=== PATIENT | female | born 1950 | race Caucasian/White ===

== ENCOUNTER 2024-01-02 21:33 | Emergency (ER) | payer OTHER ==
--- NOTE | 2024-01-02 22:36 | ER ---
Nurse's Notes [facility] Name: Michelle Trujillo Age: 73 yrs Sex: Female : 1950 Arrival Date: 01/02/2024 Time: 21:33 Bed 11 Private MD: Diagnosis: Encounter for removal of sutures;Nasal bridge laceration, encounter for suture removal Presentation: 01/01 21:47 Chief complaint: Patient states: Here to have sutures removed from nose placed on 12/26. cm10 Coronavirus screen: Client denies travel out of the [place] in the last 14 days. Ebola Screen: Patient denies travel to an Ebola-affected area in the 21 days before illness onset. No symptoms or risks identified at this time. Initial Sepsis Screen: Does the patient meet any 2 criteria? No. Patient's initial sepsis screen is negative. Does the patient have a suspected source of infection? No. Patient's initial sepsis screen is negative. Risk Assessment: Do you want to hurt yourself or someone else? Patient reports no desire to harm self or others. Onset of symptoms was January 02, 2024. 21:47 Method Of Arrival: Ambulatory cm10 21:47 Acuity: GIOVANNY 5 cm10 Triage Assessment: 21:48 General: Appears in no apparent distress. comfortable, Behavior is calm, cooperative. cm10 Pain: Complains of pain in Right elbow. Neuro: No deficits noted. Level of Consciousness is awake, alert, obeys commands, Oriented to person, place, time, situation, Appropriate for age. Respiratory: No deficits noted. Airway is patent Respiratory effort is even, unlabored, Respiratory pattern is regular, symmetrical. Derm: Sutures to nose. Historical: - Allergies: 21:47 EGG/POULTRY; cm10 21:47 Iodine; cm10 21:47 Morphine; cm10 - PMHx: 21:47 Hyperlipidemia; Hypothyroidism; cm10 - Immunization history:: Adult Immunizations up to date. - Infectious Disease History:: Denies. - Social history:: Smoking status: Patient denies any tobacco usage or history of. - Family history:: not pertinent. Screenin:49 [facility] ED Fall Risk Assessment (Adult) History of falling in the last 3 months, cm10 including since admission Yes- single mechanical fall (1 pt) Confusion or Disorientation No (0 pts) Intoxicated or Sedated No (0 pts) Impaired Gait No (0 pts) Mobility Assist Device Used No (0 pt) Altered Elimination No (0 pt) Score/Fall Risk Level 0 - 2 = Low Risk Oriented to surroundings, Maintained a safe environment, Hourly rounding (assess needs \T\ fall precautionary measures) done. Abuse screen: Denies threats or abuse. Denies injuries from another. Nutritional screening: No deficits noted. Tuberculosis screening: No symptoms or risk factors identified. Assessment: 22:48 Reassessment: Patient appears in no apparent distress at this time. No changes from vc1 previously documented assessment. Patient and/or family updated on plan of care and expected duration. Pain level reassessed. Patient is alert, oriented x 3, equal unlabored respirations, skin warm/dry/pink. Vital Signs: 21:47 BP 150 / 86; Pulse 70; Resp 16; Temp 97.6; Pulse Ox 96% on R/A; Weight 69.85 kg; Height cm10 5 ft. 6 in. ; Pain 6/10; 22:48 BP 148 / 84; Pulse 72; Resp 16; Pulse Ox 97% ; vc1 21:47 Body Mass Index 24.86 (69.85 kg, 167.64 cm) cm10 21:47 Pain Scale: Adult cm10 Mikayla Coma Score: 01/02 20:55 Eye Response: spontaneous(4). Motor Response: obeys commands(6). Verbal Response: sp4 oriented(5). Total: 15. ED Course: 01/01 21:35 Patient arrived in ED. im 21:35 Edgardo Sandhu MD is Attending Physician. sp4 21:48 Triage completed. cm10 21:49 Arm band placed on left wrist. Patient placed in an exam room, on a stretcher. cm10 21:49 Patient has correct armband on for positive identification. Bed in low position. Call cm10 light in reach. Provided Education on: ER process and procedures.. 21:49 No provider procedures requiring assistance completed. Removal of Removed sutures from cm10 nose Suture site is well healed Patient tolerated well. 22:48 Patient did not have IV access during this emergency room visit. vc1 Administered Medications: No medications were administered Medication: 21:49 VIS not applicable for this client. cm10 Outcome: 22:35 Discharge ordered by . sp4 22:48 Discharged to home ambulatory, vc1 22:48 Condition: good 22:48 Discharge instructions given to patient, Instructed on discharge instructions, the need for admit, Demonstrated understanding of instructions, follow-up care, 22:49 Patient left the ED. vc1 Signatures: Letty Atkinson RN RN vc1 Edgardo Sandhu MD MD sp4 Radha Kauffman Clarissa, RN RN cm10
--- NOTE | 2024-01-02 22:36 | EDPHYS ---
Physician Documentation [facility] Name: Michelle Trujillo Age: 73 yrs Sex: Female : 1950 Arrival Date: 01/02/2024 Time: 21:33 Bed 11 Private MD: ED Physician Edgardo Sandhu HPI: 01/01 21:35 This 73 yrs old Female presents to ER via Unassigned with complaints of sp4 Suture Removal. 01/02 20:54 73 -year-old female presents for suture removal. Patient was here 12/26/2023 for fall sp4 associated injury with fracture of the head of the right radius and also laceration to the bridge of her nose. Patient then had sutures applied to the bridge of the nose. Total of 5 sutures. Patient is here for suture removal.. Historical: - Allergies: 01/01 21:47 EGG/POULTRY; cm10 21:47 Iodine; cm10 21:47 Morphine; cm10 - PMHx: 21:47 Hyperlipidemia; Hypothyroidism; cm10 - Immunization history:: Adult Immunizations up to date. - Infectious Disease History:: Denies. - Social history:: Smoking status: Patient denies any tobacco usage or history of. - Family history:: not pertinent. ROS: 01/02 20:55 Constitutional: Negative for fever, chills, and weight loss, positive for sutured sp4 bridge of the nose laceration All other systems are negative, Exam: 20:55 Constitutional: This is a well developed, well nourished patient who is awake, alert, sp4 and in no acute distress. Head/Face: Normocephalic, multiple facial abrasions and healing stages. Bridge of the nose laceration with sutures present. Eyes: Pupils equal round and reactive to light, extra-ocular motions intact. Lids and lashes normal. Conjunctiva and sclera are not injected. Cornea within normal limits. Periorbital areas with no swelling, redness, or edema. ENT: Nares patent. No nasal discharge, no septal abnormalities noted. Tympanic membranes are normal and external auditory canals are clear. Oropharynx with no redness, swelling, or masses, exudates, or evidence of obstruction, uvula midline. Mucous membranes moist. Neck: Trachea midline, no thyromegaly or masses palpated, and no cervical lymphadenopathy. Supple, full range of motion without nuchal rigidity, or vertebral point tenderness. Chest/axilla: Normal chest wall appearance and motion. Nontender with no deformity. No lesions are appreciated. Cardiovascular: Regular rate and rhythm with a normal S1 and S2. No gallops, murmurs, or rubs. Normal PMI, no JVD. No pulse deficits. Respiratory: Lungs have equal breath sounds bilaterally, clear to auscultation and percussion. No rales, rhonchi or wheezes noted. No increased work of breathing, no retractions or nasal flaring. Abdomen/GI: Soft, with normal bowel sounds. No distension or tympany. No guarding or rebound. No evidence of tenderness throughout. Back: No spinal tenderness. No costovertebral tenderness. Skin: Warm, dry with normal turgor. Normal color with no rashes, no lesions, and no evidence of cellulitis. MS/ Extremity: Pulses equal, no cyanosis. Neurovascular intact. Full, normal range of motion. Neuro: Awake and alert, GCS 15, oriented to person, place, time, and situation. Cranial nerves II-XII grossly intact. Motor strength 5/5 in all extremities. Sensory grossly intact. Psych: Awake, alert, with orientation to person, place and time. Behavior, mood, and affect are within normal limits Vital Signs: 01/01 21:47 BP 150 / 86; Pulse 70; Resp 16; Temp 97.6; Pulse Ox 96% on R/A; Weight 69.85 kg; Height cm10 5 ft. 6 in. ; Pain 6/10; 22:48 BP 148 / 84; Pulse 72; Resp 16; Pulse Ox 97% ; vc1 21:47 Body Mass Index 24.86 (69.85 kg, 167.64 cm) cm10 21:47 Pain Scale: Adult cm10 [place] Coma Score: 01/02 20:55 Eye Response: spontaneous(4). Motor Response: obeys commands(6). Verbal Response: sp4 oriented(5). Total: 15. Procedures: 20:55 Suture/Staple removal: Removed 5 sutures, from bridge of nose, site appears In healing sp4 stages, dressed with Neosporin, Patient tolerated well, Sutures removed without a problem . MDM: 01/01 21:40 Patient medically screened. sp4 10/04 20:55 Data reviewed: vital signs, nurses notes, old medical records. ED course: Stable for sp4 discharge home after suture removal . Administered Medications: No medications were administered Disposition Summary: 01/02/24 22:35 Discharge Ordered Notes: Location: Home sp4 Problem: new sp4 Symptoms: have improved sp4 Condition: Stable sp4 Diagnosis - Encounter for removal of sutures sp4 - Nasal bridge laceration, encounter for suture removal sp4 Followup: sp4 - With: Private Physician - When: 7 - 10 days - Reason: Recheck today's complaints Discharge Instructions: - Discharge Summary Sheet sp4 - Laceration Care, Adult sp4 Forms: - Patient Portal Instructions sp4 Signatures: Edgardo Sandhu MD MD sp4 Elisa Coleman RN RN cm10
[2024-01-03 10:12] VITALS: TEMP 97.6
[2024-01-03 10:13] VITALS: BP 148/84; O2SAT 97
== END 2024-01-02 22:49 | disposition home or self-care (01) ==
LOC: ER 21:33
DX: Z48.02 Encounter for removal of sutures (principal)
CPT/HCPCS: 99281; 99283

== ENCOUNTER 2024-12-28 07:26 | Emergency (ER) | payer OTHER ==
[2024-12-28] MEDS ORDERED: ACETAMINOPHEN 500 MG TAB ONE (07:36)
[2024-12-28] MEDS ORDERED: ONDANSETRON 4 MG (ODT) TAB ONE (07:36)
[2024-12-28] MEDS ORDERED: HYDROCODONE/APAP 5/325 MG TAB ONE (07:38)
--- NOTE | 2024-12-28 08:08 | RAD REPORT ---
EXAM: Knee Left 2 View INDICATION: trauma COMPARISON: 12/26/2023 FINDINGS: No acute fracture. No significant knee effusion. Mild medial and lateral compartment narrowing. Patellar enthesophytes. Other: N/A IMPRESSION: No acute osseous abnormality involving the imaged knee.
--- NOTE | 2024-12-28 08:22 | RAD REPORT ---
EXAMINATION: Head Brain Wo Cont CLINICAL INDICATION: Female, 74 years old.TRAUMA TECHNIQUE: Axial CT images from the skull base to the vertex without intravenous contrast. Coronal an d sagittal reformatted images were created from the data set. One or more of the following dose reduction techniques were used: Automated exposure control, adjustment of the mA and/or kV according to patient size, and/or iterative reconstruction. Unless otherwise specified, incidental findings do not require dedicated imaging follow-up. [id number]. COMPARISON: No prior exams FINDINGS: INTRACRANIAL: No acute intracranial hemorrhage. No acute large vascular territory infarct. No hydroce phalus. No mass effect or midline shift. 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 VASCULATURE: No visualized abnormalities in the arteries or dural venous sinuses. SCALP/SKULL: No calvarial fracture identified. No acute soft tissue abnormality. SINUSES: The visualized paranasal sinuses are mostly clear. No significant mastoid fluid. IMPRESSION: No acute intracranial abnormality.
--- NOTE | 2024-12-28 08:26 | RAD REPORT ---
EXAMINATION: Facial Bones W/ Mpr CLINICAL INDICATION: Female, 74 years old. TRAUMA TECHNIQUE: Axial images were obtained through the facial bones and orbits without intravenous contras t. Sagittal and coronal reconstructions were created from the data. One or more of the following dose reduction techniques were used: Automated exposure control, adjustment of the mA and/or kV accor ding to patient size, and/or iterative reconstruction. Unless otherwise specified, incidental findings do not require dedicated imaging follow-up. [id number]. COMPARISON: No prior exams FINDINGS: SOFT TISSUE: Left forehead hematoma. Probable laceration. Tiny radiopaque densities within the skin BONES: Remote nondisplaced bilateral nasal bone fractures. No acute fracture identified. ORBITS: The globes are intact. No intraorbital hemorrhage or mass. SINUSES: Trace left maxillary sinus thickening. BRAIN: No acute abnormalities in the visualized intracranial structures. IMPRESSION: No acute facial fracture.. Left forehead hematoma and laceration with some radiopaque debris.
--- NOTE | 2024-12-28 08:46 | EDPHYS ---
Physician Documentation [facility] Name: Mcihelle Trujillo Age: 74 yrs Sex: Female : 1950 Arrival Date: 12/28/2024 Time: 07:26 Bed 13 Private MD: ED Physician Martir Green HPI: 12/28 07:46 This 74 yrs old Female presents to ER via Ambulatory with complaints of Fall Injury, sp3 Face Injury- EYEBROW CHEEK. 07:46 74-year-old female with history of hypothyroidism, hyperlipidemia presents to the ED sp3 with a mechanical fall while walking her dog after she stepped in a hole falling on the left side of her face, left wrist and left knee. She denies loss of consciousness. She states she currently has a headache and facial pain and left knee pain. Left wrist is not painful. She denies significant blood loss, malocclusion, or any other review of systems at this time. Remainder of ROS is negative.. Historical: - Allergies: 07:37 EGG/POULTRY; ss 07:37 Iodine; ss 07:37 Morphine; ss - PMHx: 07:37 Hyperlipidemia; Hypothyroidism; ss - Immunization history:: Last tetanus immunization: up to date. - Infectious Disease History:: Denies. - Social history:: Smoking status: Patient denies any tobacco usage or history of. ROS: 07:47 Constitutional: Negative for fever, chills, and weight loss, Eyes: Negative for injury, sp3 pain, redness, and discharge, Neck: Negative for injury, pain, and swelling, Cardiovascular: Negative for chest pain, palpitations, and edema, Respiratory: Negative for shortness of breath, cough, wheezing, and pleuritic chest pain, Abdomen/GI: Negative for abdominal pain, nausea, vomiting, diarrhea, and constipation, Back: Negative for injury and pain, Skin: Negative for injury, rash, and discoloration, Psych: Negative for depression, anxiety, suicide ideation, homicidal ideation, and hallucinations, Allergy/Immunology: Negative for hives, rash, and allergies, Endocrine: Negative for neck swelling, polydipsia, polyuria, polyphagia, and marked weight changes, Hematologic/Lymphatic: Negative for swollen nodes, abnormal bleeding, and unusual bruising, 07:47 All other systems are negative, Exam: 07:48 Constitutional: This is a well developed, well nourished patient who is awake, alert, sp3 and in no acute distress. Eyes: Pupils equal round and reactive to light, extra-ocular motions intact. Lids and lashes normal. Conjunctiva and sclera are non-icteric and not injected. Cornea within normal limits. Periorbital areas with no swelling, redness, or edema. ENT: Nares patent. No nasal discharge, no septal abnormalities noted. External auditory canals are clear. Oropharynx with no redness, swelling, or masses, exudates, or evidence of obstruction, uvula midline. Mucous membranes moist. Neck: Trachea midline, no thyromegaly or masses palpated, and no cervical lymphadenopathy. Supple, full range of motion without nuchal rigidity, or vertebral point tenderness. No Meningismus. Chest/axilla: Normal chest wall appearance and motion. Nontender with no deformity. No lesions are appreciated. Cardiovascular: Regular rate and rhythm with a normal S1 and S2. No gallops, murmurs, or rubs. Normal PMI, no JVD. No pulse deficits. Respiratory: Lungs have equal breath sounds bilaterally, clear to auscultation and percussion. No rales, rhonchi or wheezes noted. No increased work of breathing, no retractions or nasal flaring. Abdomen/GI: Soft, non-tender, with normal bowel sounds. No distension or tympany. No guarding or rebound. No evidence of tenderness throughout. Back: No spinal tenderness. No costovertebral tenderness. Full range of motion. Skin: Warm, dry with normal turgor. Normal color with no rashes, no lesions, and no evidence of cellulitis. Neuro: Awake and alert, GCS 15, oriented to person, place, time, and situation. Cranial nerves II-XII grossly intact. Motor strength 5/5 in all extremities. Sensory grossly intact. Cerebellar exam normal. Normal gait. Psych: Awake, alert, with orientation to person, place and time. Behavior, mood, and affect are within normal limits. 07:48 Musculoskeletal/extremity: Left knee abrasion over the patella noted. Normal knee exam and distal neurovascular exam is normal. Left wrist painful on motion however no crepitus swelling or any other concerning findings.. Vital Signs: 07:35 BP 175 / 92; Pulse 70; Resp 16; Temp 97.8(O); Pulse Ox 98% on R/A; Weight 82.55 kg; ss Height 5 ft. 6 in. ; Pain 7/10; 08:50 Pain 3/10; ar8 09:33 BP 156 / 92; Pulse 62; Resp 17; Pulse Ox 98% on R/A; Pain 3/10; ar8 07:35 Body Mass Index 29.38 (82.55 kg, 167.64 cm) ss 07:35 Pain Scale: Adult ss 08:50 Pain Scale: Adult ar8 09:33 Pain Scale: Adult ar8 MDM: 07:37 Medical Screening Exam initiated sp3 07:48 Data reviewed: vital signs, nurses notes, radiologic studies. ED course: 74-year-old sp3 female with mechanical fall with injuries to the face, head and extremities. Differential diagnosis includes concussion versus intracranial hemorrhage versus closed head injury versus superficial abrasions and contusions to the face. Left knee abrasion also noted. Eye exam is normal and I am not suspicious of any eye injury including the anterior chamber. No hyphema is present. Patient's neuroexam is normal and she is talking in full sentences in no acute distress. [place] for pain control and ondansetron ODT for nausea control. If scans are negative and wounds require no repair after extensive cleaning, we will safely discharge patient home. Patient's tetanus is up-to-date.. 08:43 ED course: All scans negative. We will again clean wound thoroughly, bandage and sp3 discharge patient home.. 12/28 07:39 Order name: CT Head Brain wo Cont; Complete Time: 08:27 sp3 12/28 07:39 Order name: CT Facial Bones W/O Con; Complete Time: 08:27 sp3 12/28 07:39 Order name: Knee Left 2 View XRAY; Complete Time: 08:27 sp3 Administered Medications: 07:46 CANCELLED (changed): [id number] mg PO once sp3 07:50 Drug: Ondansetron Oral Disintegrating Tablet Oral Disintegrating Tablet 4 mg PO once ar8 Route: PO; 08:50 Follow up: Response: No adverse reaction; Nausea is decreased ar8 07:50 Drug: HYDROcodone-acetaminophen PO 5 mg-325 mg 2 tabs PO once Route: PO; ar8 08:50 Follow up: Pain 3/10 Adult; Response: No adverse reaction; Pain is decreased ar8 Disposition Summary: 12/28/24 08:45 Discharge Ordered Notes: Location: Home sp3 Condition: Stable sp3 Diagnosis - Mechanical fall, closed head injury, facial abrasions, facial hematoma, left knee sp3 abrasion Followup: sp3 - With: Private Physician - When: Upon discharge from the Emergency Department - Reason: Continuance of care Discharge Instructions: - Discharge Summary Sheet sp3 - Facial or Scalp Contusion sp3 - Head Injury, Adult sp3 Forms: - Medication Reconciliation Form sp3 - Antibiotic Education sp3 - Prescription Opioid Use sp3 - Patient Portal Instructions sp3 - Leadership Thank You Letter sp3 Prescriptions: - Tramadol 50 mg Oral Tablet - take 1 tablet ORAL route every 8 hours as needed; 12 tablet; Refills: 0, sp3 Product Selection Permitted Signatures: Dispatcher [employer] Lila Mcfadden RN RN ss Martir Green MD MD sp3 Tristan Frost RN RN ar8 Corrections: (The following items were deleted from the chart) 07:46 07:39 Acetaminophen PO 1000 mg PO once ordered. sp3 sp3
--- NOTE | 2024-12-28 08:46 | ER ---
Nurse's Notes [facility] Name: Michelle Trujillo Age: 74 yrs Sex: Female : 1950 Arrival Date: 12/28/2024 Time: 07:26 Bed 13 Private MD: Diagnosis: Mechanical fall, closed head injury, facial abrasions, facial hematoma, left knee abrasion Presentation: 12/28 07:35 Chief complaint: Patient states: tripped and fell in driveway just prior to arrival. ss Abrasions and small laceration noted to L cheek and above L brow. Abrasion also noted to L knee. Denies LOC, + nausea. Coronavirus screen: Client denies travel out of the [place] in the last 14 days. Ebola Screen: Patient denies exposure to infectious person. Patient denies travel to an Ebola-affected area in the 21 days before illness onset. Initial Sepsis Screen: Does the patient meet any 2 criteria? No. Patient's initial sepsis screen is negative. Does the patient have a suspected source of infection? No. Patient's initial sepsis screen is negative. Risk Assessment: Do you want to hurt yourself or someone else? Patient reports no desire to harm self or others. Onset of symptoms was December 28, 2024. 07:35 Method Of Arrival: Ambulatory ss 07:35 Acuity: GIOVANNY 3 ss Triage Assessment: 07:38 General: Appears uncomfortable, Behavior is calm, cooperative. Pain: Complains of pain ss in left cheek, middle aspect of left eyebrow and outer aspect of left eyebrow, L knee. Neuro: Level of Consciousness is awake, alert, obeys commands, Oriented to person, place, time, situation. Respiratory: Airway is patent Respiratory effort is even, unlabored, Respiratory pattern is regular, symmetrical. Derm: abrasion noted above L brow and L cheek. Moderate swelling noted. Historical: - Allergies: 07:37 EGG/POULTRY; ss 07:37 Iodine; ss 07:37 Morphine; ss - PMHx: 07:37 Hyperlipidemia; Hypothyroidism; ss - Immunization history:: Last tetanus immunization: up to date. - Infectious Disease History:: Denies. - Social history:: Smoking status: Patient denies any tobacco usage or history of. Screenin:38 [facility] ED Fall Risk Assessment (Adult) History of falling in the last 3 months, ar8 including since admission No falls in past 3 months (0 pts) Confusion or Disorientation No (0 pts) Intoxicated or Sedated No (0 pts) Impaired Gait No (0 pts) Mobility Assist Device Used No (0 pt) Altered Elimination No (0 pt) Score/Fall Risk Level 0 - 2 = Low Risk Oriented to surroundings, Maintained a safe environment. Abuse screen: Denies threats or abuse. Nutritional screening: No deficits noted. Tuberculosis screening: No symptoms or risk factors identified. Assessment: 07:38 General: Appears uncomfortable, Behavior is cooperative. Pain: Complains of pain in ar8 outer aspect of left eyebrow and left supraorbital ridge Pain currently is 10 out of 10 on a pain scale. Pain began 30 min ago. Neuro: Level of Consciousness is awake, alert, obeys commands, Oriented to person, place, time, situation, Dice Manager are equal bilaterally Moves all extremities. Full function Gait is steady, Speech is normal, Facial symmetry appears normal, Reports headache frontal area. Cardiovascular: Patient's skin is warm and dry. Respiratory: Airway is patent is compromised Trachea midline Respiratory effort is even, unlabored, Respiratory pattern is regular, symmetrical. GI: No signs and/or symptoms were reported involving the gastrointestinal system. GI: Reports nausea. : No signs and/or symptoms were reported regarding the genitourinary system. EENT: No signs and/or symptoms were reported regarding the EENT system. Derm: Wound noted outer aspect of left eyebrow, left upper eyelid and left knee Wound is puncture wound to left eyebrow, abrasion to left eyebrow, left outer aspect of eyelid, and left knee. 07:38 Musculoskeletal: Reports pain in left knee. ar8 Vital Signs: 07:35 BP 175 / 92; Pulse 70; Resp 16; Temp 97.8(O); Pulse Ox 98% on R/A; Weight 82.55 kg; ss Height 5 ft. 6 in. ; Pain 7/10; 08:50 Pain 3/10; ar8 09:33 BP 156 / 92; Pulse 62; Resp 17; Pulse Ox 98% on R/A; Pain 3/10; ar8 07:35 Body Mass Index 29.38 (82.55 kg, 167.64 cm) ss 07:35 Pain Scale: Adult ss 08:50 Pain Scale: Adult ar8 09:33 Pain Scale: Adult ar8 ED Course: 07:29 Patient arrived in ED. cj3 07:31 Martir Green MD is Attending Physician. sp3 07:37 Triage completed. ss 07:37 Arm band placed on right wrist. ss 07:38 Tristan Frost, ROSALIA is Primary Nurse. ar8 07:38 Bed in low position. Call light in reach. Side rails up X2. Provided Education on: plan ar8 of care, diagnostics and estimated wait time. Warm blanket given. 07:38 No provider procedures requiring assistance completed. Wound care: to puncture and ar8 abrasion located on outer aspect of left eyebrow and left upper eyelid was cleaned with with Cleaned with NS. Patient declined Hibiclens due to allergies. , Patient tolerated well. 07:55 Radiology at bedside for x-ray of left knee. ar8 07:[address] ar8 08:01 Knee Left 2 View XRAY In Process Unspecified. EDMS 08:03 CT Head Brain wo Cont In Process Unspecified. EDMS 08:09 CT Facial Bones W/O Con In Process Unspecified. EDMS 09:40 Wound care: to abrasion, located on outer aspect of left eyebrow, left upper eyelid and ar8 left lower eyelid was cleaned with with NS, dressed with Kerlix, ABD pads, Patient tolerated well. 09:40 Patient did not have IV access during this emergency room visit. ar8 Administered Medications: 07:46 CANCELLED (changed): [id number] mg PO once sp3 07:50 Drug: Ondansetron Oral Disintegrating Tablet Oral Disintegrating Tablet 4 mg PO once ar8 Route: PO; 08:50 Follow up: Response: No adverse reaction; Nausea is decreased ar8 07:50 Drug: HYDROcodone-acetaminophen PO 5 mg-325 mg 2 tabs PO once Route: PO; ar8 08:50 Follow up: Pain 3/10 Adult; Response: No adverse reaction; Pain is decreased ar8 Medication: 07:38 VIS not applicable for this client. ar8 Outcome: 08:45 Discharge ordered by . sp3 09:44 Discharged to home ambulatory, ar8 09:44 Condition: stable 09:44 Discharge instructions given to patient, significant other, Instructed on discharge instructions, follow up and referral plans. medication usage, wound care, Demonstrated understanding of instructions, follow-up care, medications, wound care, Prescriptions given X 1, 09:46 Patient left the ED. ar8 Signatures: Dispatcher [employer] EDLila Espitia, RN RN Martir Green MD MD sp3 Olivia Givens 3 Tristan Frost RN RN ar8 Corrections: (The following items were deleted from the chart) 07:52 07:38 Pain: Complains of pain in outer aspect of left eyebrow and left supraorbital ar8 ridge Pain currently is 10 out of 10 on a pain scale. Pain began 30 min ago. ar8 07:52 07:38 Derm: Wound noted outer aspect of left eyebrow and left upper eyelid Wound is ar8 puncture wound to left eyebrow, abrasion to left eyebrow and left outer aspect of eyelid ar8
[2024-12-28 10:20] VITALS: BP 175/92; TEMP 97.8; O2SAT 98
== END 2024-12-28 09:46 | disposition home or self-care (01) ==
LOC: ER 07:26
DX: S00.81XA Abrasion of other part of head, initial encounter (principal); S80.212A Abrasion, left knee, initial encounter; W18.30XA Fall on same level, unspecified, initial encounter
CPT/HCPCS: 70450; 70486; 76377; 73560; 99284; Q0162